=== PATIENT | female | born 1980 | race Caucasian/White ===

== ENCOUNTER 2024-03-26 13:06 | Emergency (ER) | payer MEDICAID ==
[~2024-03-26] VITALS: Ht 167.6 cm; Wt 69.3 kg
[2024-03-26] MEDS ORDERED: CEPH-585 PO (15:34)
[2024-03-26] MEDS ORDERED: SULF-15 PO (15:34)
[2024-03-26] MEDS ORDERED: tetanus & diphtheria toxoid (Td) vaccine 0.5ml IMVAC ONE (15:45)
[2024-03-26] MEDS: ketorolac trometh 15mg/ml vial 15 MG/ML ML IM ONE (15:52)
[2024-03-26] MEDS: cephalexin 250mg capsule PO ONE (15:53)
[2024-03-26] MEDS: TETanus/Pertussis (Acell)/Diphther VAC/PF (Tdap-Adult) 0.5ml syringe IMVAC ONE (15:53)
[2024-03-26 16:01] VITALS: BP 112/64; PULSE 76; RESP 16; TEMP 98; O2SAT 100
== END 2024-03-26 16:02 | disposition home or self-care (01) ==
LOC: ER 13:06
DX: S51.011A Laceration without foreign body of right elbow, initial encounter (principal); L03.113 Cellulitis of right upper limb; Z79.2 Long term (current) use of antibiotics; W19.XXXA Unspecified fall, initial encounter; Y93.89 Activity, other specified; Y92.89 Other specified places as the place of occurrence of the external cause; Y99.8 Other external cause status
CPT/HCPCS: 73080; 90471; 90715; 96372; 99284; J1885